=== PATIENT | male | born 1975 | race Caucasian/White ===

== ENCOUNTER 2017-01-07 11:09 | Emergency (ER) | payer SELFPAY ==
[~2017-01-07] VITALS: Ht 175.3 cm; Wt 68.0 kg
[~2017-01-07 11:09] MED LIST: CEPH-460 PO; GABA100C4 PO; IBUP800T23 PO; VIST50CA PO; ZOLO50TA PO
[2017-01-07 11:10] VITALS: BP 138/87; PULSE 105; RESP 14; TEMP 98.3; O2SAT 96
[2017-01-07 13:32] LABS: AMPHETAMINE, URINE NEG (NEG); BARBITURATES, URINE NEG (NEG); COCAINE, URINE NEG (NEG)
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
[2017-01-07 14:26] LABS: AUTOMATED NEUTROPHIL # 8.4 TH/MM3 (1.8-7.7); BASOPHIL # 0.1 TH/MM3 (0-0.2); EOSINOPHIL % 0.1 % (0.0-4.0); HEMATOCRIT 45.7 % (39.0-51.0); HEMO FLAGS DIFF FINAL; LYMPH % 10.5 % (9.0-44.0); LYMPHOCYTE # 1.1 TH/MM3 (1.0-4.8); MEAN CORPUSCULAR HEMOGLOBIN 31.6 PG (27.0-34.0); MEAN CORPUSCULAR HGB CONC 34.7 % (32.0-36.0); NEUT % 83.4 % (16.0-70.0); PLATELET COUNT 260 TH/MM3 (150-450); RED BLOOD COUNT 5.03 MIL/MM3 (4.50-5.90); RED CELL DISTRIBUTION WIDTH 13.3 % (11.6-17.2); WHITE BLOOD COUNT 10.1 TH/MM3 (4.0-11.0)
[2017-01-07 14:46] LABS: ANION GAP 8 MEQ/L (5-15); AST (GOT) 29 U/L (15-37); BICARBONATE 27.4 MEQ/L (21.0-32.0); BLOOD UREA NITROGEN 9 MG/DL (7-18); CHLORIDE 102 MEQ/L (98-107); GLOMERULAR FILTRATION RATE 92 ML/MIN (>89); POTASSIUM 3.8 MEQ/L (3.5-5.1); SODIUM (NA) 137 MEQ/L (136-145)
[2017-01-07 14:49] LABS: ACETAMINOPHEN LESS THAN 2.0 MCG/ML (10.0-30.0); ALKALINE PHOSPHATASE 131 U/L (45-117); ALT (GPT) 21 U/L (12-78); TOTAL BILIRUBIN ADULT 0.6 MG/DL (0.2-1.0)
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
[2017-01-07 17:40] VITALS: BP 131/87; PULSE 88; RESP 18; O2SAT 95
[2017-01-07 22:25] VITALS: BP 135/74; PULSE 82; RESP 19; O2SAT 99
[2017-01-08 02:16] VITALS: BP 135/78; PULSE 73; RESP 19; O2SAT 99
[2017-01-08] MEDS ORDERED: IBUPROFEN 800 MG TAB PO ONE (03:30)
[2017-01-08 06:20] VITALS: BP 136/86; PULSE 81; RESP 19; O2SAT 100
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
== END 2017-01-08 10:46 | disposition home or self-care (01) ==
LOC: NEPJ 11:09
DX: F31.9 Bipolar disorder, unspecified (principal); S02.2XXA Fracture of nasal bones, initial encounter for closed fracture; S02.31XA Fracture of orbital floor, right side, initial encounter for closed fracture; F41.9 Anxiety disorder, unspecified; Y04.2XXA Assault by strike against or bumped into by another person, initial encounter; Y93.9 Activity, unspecified; Y92.9 Unspecified place or not applicable; Y99.9 Unspecified external cause status
CPT/HCPCS: 70450; 70486; 80053; 80307; 80320; 80329; 85025; G0480